=== PATIENT | female | born 1980 | race Caucasian/White ===

== ENCOUNTER 2016-07-05 14:39 | Outpatient (CLI) | payer MEDICAID | END 2016-07-05 14:40 | disposition home or self-care (01) | DX: Z79.899 Other long term (current) drug therapy (principal); E11.9 Type 2 diabetes mellitus without complications ==

== ENCOUNTER 2016-07-26 10:19 | Outpatient (CLI) | payer MEDICAID | END 2016-07-26 10:20 | disposition home or self-care (01) | DX: G47.30 Sleep apnea, unspecified (principal); R09.89 Other specified symptoms and signs involving the circulatory and respiratory systems; G47.8 Other sleep disorders; G47.10 Hypersomnia, unspecified; R06.83 Snoring; G47.21 Circadian rhythm sleep disorder, delayed sleep phase type ==

== ENCOUNTER 2016-08-21 21:09 | Outpatient (CLI) | payer MEDICAID | END 2016-08-21 21:10 | disposition home or self-care (01) | DX: G47.33 Obstructive sleep apnea (adult) (pediatric) (principal); Z68.43 Body mass index [BMI] 50.0-59.9, adult ==

== ENCOUNTER 2016-08-31 13:02 | Outpatient (CLI) | payer MEDICAID | END 2016-08-31 13:03 | disposition home or self-care (01) | DX: G47.33 Obstructive sleep apnea (adult) (pediatric) (principal) ==

== ENCOUNTER 2016-10-08 10:07 | Outpatient (CLI) | payer MEDICAID | END 2016-10-08 10:08 | disposition home or self-care (01) | DX: Z79.1 Long term (current) use of non-steroidal anti-inflammatories (NSAID) (principal); E11.9 Type 2 diabetes mellitus without complications ==

== ENCOUNTER 2016-11-23 10:46 | Outpatient (CLI) | payer MEDICAID | END 2016-11-23 10:47 | disposition home or self-care (01) | LOC: SC 10:46 | PROVIDERS: ATTEND Nurse Practitioner Family | DX: G47.33 Obstructive sleep apnea (adult) (pediatric) (principal) | CPT/HCPCS: 99212; 99214 ==

== ENCOUNTER → 2017-01-25 | Outpatient (CLI) | payer MEDICAID | LOC: LAB.R 16:00 | PROVIDERS: ATTEND Physician Assistant | DX: Z11.3 Encounter for screening for infections with a predominantly sexual mode of transmission (principal) | CPT/HCPCS: 87491; 87591 ==

== ENCOUNTER 2017-01-31 15:15 | Outpatient (CLI) | payer MEDICAID ==
[2017-01-31 20:11] LABS: HEMOGLOBIN A1C 0.68 g/dL
== END 2017-01-31 15:16 | disposition home or self-care (01) ==
LOC: LAB.N 15:15
PROVIDERS: ATTEND Nurse Practitioner Gerontology
DX: E11.9 Type 2 diabetes mellitus without complications (principal)
CPT/HCPCS: 36415; 83036

== ENCOUNTER 2017-02-03 08:33 | Outpatient (CLI) | payer MEDICAID | END 2017-02-03 08:34 | disposition home or self-care (01) | LOC: LAB.N 08:33 | PROVIDERS: ATTEND Nurse Practitioner Gerontology | DX: R53.83 Other fatigue (principal) | CPT/HCPCS: 36415; 84443 ==

== ENCOUNTER 2017-02-22 10:04 | Outpatient (CLI) | payer MEDICAID | END 2017-02-22 10:05 | disposition home or self-care (01) | LOC: SC 10:04 | PROVIDERS: ATTEND Nurse Practitioner Family | DX: G47.33 Obstructive sleep apnea (adult) (pediatric) (principal) | CPT/HCPCS: 99212; 99214 ==

== ENCOUNTER 2017-06-13 10:50 | Outpatient (CLI) | payer MEDICAID ==
[2017-06-13 13:07] LABS: HEMOGLOBIN A1C 0.86 g/dL
== END 2017-06-13 10:51 | disposition home or self-care (01) ==
LOC: LAB.N 10:50
PROVIDERS: ATTEND Nurse Practitioner Gerontology
DX: E11.9 Type 2 diabetes mellitus without complications (principal)
CPT/HCPCS: 36415; 83036

== ENCOUNTER 2017-12-07 09:40 | Outpatient (CLI) | payer MEDICAID ==
[2017-12-07 13:16] LABS: BASOPHILS % (AUTO) 0.3 %; EOSINOPHILS # (AUTO) 0.2 10^3/uL (0.0-0.7); EOSINOPHILS % (AUTO) 1.8 %; LYMPHOCYTES # (AUTO) 4.2 10^3/uL (1.5-3.5); LYMPHOCYTES % (AUTO) 34.9 %; MEAN CORPUSCULAR HEMOGLOBIN 30.9 pg (27.0-31.0); MEAN CORPUSCULAR HGB CONC 33.9 g/dL (32.0-36.0); MEAN CORPUSCULAR VOLUME 91.1 fL (81.0-99.0); MEAN PLATELET VOLUME 8.3 fL (7.9-10.8); MONOCYTES # (AUTO) 0.5 10^3/uL (0.0-1.0); MONOCYTES % (AUTO) 4.4 %; NEUTROPHILS # (AUTO) 7.1 10^3/uL (1.5-6.6); NEUTROPHILS % (AUTO) 58.6 %; PLT - PLATELET COUNT 276 10^3/uL (130-450); RED BLOOD COUNT 5.16 10^6/uL (4.20-5.40); RED CELL DISTRIBUTION WIDTH 12.9 % (12.0-15.0); WHITE BLOOD COUNT 12.1 x10^3/uL (4.8-10.8)
[2017-12-07 13:37] LABS: ALBUMIN 3.4 g/dL (3.2-5.5); ALBUMIN/GLOBULIN RATIO 0.9 (1.0-2.2); ALKALINE PHOSPHATASE 66 IU/L (42-121); ALT ALANINE AMINOTRANSFERASE 35 IU/L (10-60); AST ASPARTATE AMINOTRANSFERASE 24 IU/L (10-42); BILIRUBIN,TOTAL 0.6 mg/dL (0.2-1.0); BUN - BLOOD UREA NITROGEN 10 mg/dL (6-20); CALCIUM 8.8 mg/dL (8.5-10.3); CARBON DIOXIDE - CO2 25 mmol/L (21-32); CHLORIDE 109 mmol/L (101-111); CHOLESTEROL 138 mg/dL; CREATININE 0.5 mg/dL (0.4-1.0); GFR - MDRD 139 (>89); GLUCOSE 106 mg/dL (70-100); HDL CHOLESTEROL 23 mg/dL; LDL CHOLESTEROL,CALCULATED 73 mg/dL; LDL/HDL RATIO 3.2 (<4.4); SODIUM 137 mmol/L (135-145); TOTAL PROTEIN 7.3 g/dL (6.7-8.2); VLDL CHOLESTEROL 42 mg/dL
[2017-12-07 13:58] LABS: HB2 TOTAL 18.4 g/dL; HEMOGLOBIN A1C 1.32 g/dL; HEMOGLOBIN A1C % 8.7 % (4.6-6.2)
== END 2017-12-07 09:41 ==
LOC: LAB.N 09:40
PROVIDERS: ATTEND Nurse Practitioner Gerontology
DX: E11.9 Type 2 diabetes mellitus without complications (principal); Z79.4 Long term (current) use of insulin; E78.5 Hyperlipidemia, unspecified
CPT/HCPCS: 36415; 80053; 80061; 82043; 83036; 83721; 84443; 85025

== ENCOUNTER 2018-01-07 13:01 | Emergency (ER) | payer MEDICAID ==
[2018-01-07 13:10] VITALS: BP 116/78
--- NOTE | 2018-01-07 13:20 | ED Physician Documentation ---
PD HPI FEMALE - Stated complaint Stated Complaint: FEMALE - Chief complaint Chief Complaint: UTI - History obtained from History obtained from: Patient - History of Present Illness Timing - onset: How many days ago (2) Timing - duration: Days (2) Timing - details: Gradual onset, Still present Associated symptoms: Dysuria, Urinary frequency. No: Fever, Vaginal pain, Vaginal bleeding, Vaginal discharge Contributing factors: No: , Exposed to STD Similar symptoms before: Diagnosis (uti) Recently seen: Not recently seen Review of Systems Constitutional: denies: Fever, Chills, Myalgias Nose: denies: Rhinorrhea / runny nose, Congestion Throat: denies: Sore throat Respiratory: denies: Cough GI: reports: Nausea. denies: Abdominal Pain, Vomiting, Constipation, Diarrhea : reports: Dysuria, Frequency. 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 - Present Medications Home Medications: Ambulatory Orders Medication Instructions Recorded Confirmed Insulin Glargine,Hum.rec.anlog 100 unit SQ QPM 04/23/14 03/03/16 [Lantus] Insulin Lispro [Humalog] 50 unit SQ AC 04/23/14 03/03/16 Blood Sugar Diagnostic [Advanced 1 each QID #120 strip 03/22/15 03/03/16 Glucose Test Strips] Blood-Glucose Meter [Blood Glucose 1 each QID #1 each 03/22/15 03/03/16 Meter] Cephalexin [Keflex] 500 mg PO QID #20 capsule 03/03/16 Fluconazole [Diflucan] 150 mg PO ONCE #2 tablet 03/03/16 Hydrocodone/Acetaminophen [[place] 1 each PO Q6H PRN #20 tablet 03/03/16 5-325 Tablet] Naproxen 375 mg PO BID #15 tablet 03/03/16 Phenazopyridine [Pyridium] 200 mg PO TID PRN #15 tablet 01/07/18 Sulfamethox/Trimeth 800/160 1 each PO BID #14 tablet 01/07/18 [Bactrim Ds 800/160] - Allergies Allergies/Adverse Reactions: Allergies Allergy/AdvReac Type Severity Reaction Status Date / Time glipizide AdvReac Intermediate Diarrhea Verified 03/03/16 17:50 metformin AdvReac Intermediate Diarrhea Verified 03/03/16 17:50 acetaminophen [From Percocet] AdvReac Itching Verified 03/03/16 17:50 oxycodone HCl * AdvReac Itching Verified 03/03/16 17:50 [From Percocet] - Social History Does the pt smoke?: Yes Smoking Status: Current every day smoker Does the pt drink ETOH?: Yes Does the pt have substance abuse?: No - Immunizations Immunizations are current?: No Immunizations: TDAP >10years/unknown - POLST Patient has POLST: No PD ED PE NORMAL - Vitals Vital signs reviewed: Yes - General General: Alert and oriented X 3, No acute distress, Well developed/nourished - Abdomen Abdomen: Soft, Non tender - Female Female : Deferred - Rectal Rectal: Deferred - Back Back: No CVA TTP Results - Vitals Vitals: Oxygen O2 Source Room air - Labs Labs: Laboratory Tests 01/07/18 01/07/18 13:10 13:10 Urine Color DARK YELLOW Urine Clarity SL. CLOUDY Urine pH 6.0 Ur Specific [place] 1.020 1.020 Urine Protein NEGATIVE Urine Glucose (UA) NEGATIVE Urine Ketones NEGATIVE Urine Occult Blood TRACE-INTA Urine Nitrite POSITIVE H Urine Bilirubin NEGATIVE Urine Urobilinogen 0.2 (NORMAL) Ur Leukocyte Esterase SMALL H Urine RBC 0-5 Urine WBC >25 H Urine WBC Clumps PRESENT Ur Squamous Epith Cells MOD Squamous H Urine Bacteria Many H Ur Microscopic Review INDICATED Urine Culture Comments NOT INDICATED Urine HCG, Qual NEGATIVE PD MEDICAL DECISION MAKING - ED course Complexity details: considered differential, d/w patient - Sepsis Event Vital Signs: Oxygen O2 Source Room air Departure - Departure Disposition: 01 Home, Self Care Clinical Impression: Cystitis, Dysuria Condition: Stable Record reviewed to determine appropriate education?: Yes Instructions: ED UTI Cystitis Female Follow-Up: Cassy Doyle ARNP [Primary Care Provider] - Prescriptions: Phenazopyridine [Pyridium] 200 mg PO TID PRN #15 tablet PRN Reason: Pain Sulfamethox/Trimeth 800/160 [Bactrim Ds 800/160] 1 each PO BID #14 tablet Comments: Drink lots of fluids. Use Tylenol or ibuprofen if needed for pains. Phenazopyridine can help with the symptoms of urinary tract infection. Bactrim antibiotic twice daily for a week. Recheck if not improving over the next few days. Discharge Date/Time: 01/07/18 14:12
[2018-01-07 13:21] LABS: BILIRUBIN,URINE NEGATIVE (NEGATIVE); GLUCOSE, URINE (UA) NEGATIVE (NEGATIVE); KETONES,URINE (UA) NEGATIVE (NEGATIVE); LEUKOCYTE ESTERASE, URINE SMALL (NEGATIVE); NITRITE,URINE POSITIVE (NEGATIVE); OCCULT BLOOD,URINE TRACE-INTA (NEGATIVE); PROTEIN,URINE NEGATIVE (NEGATIVE); UROBILINOGEN,URINE 0.2 (NORMAL) E.U./dL (NORMAL)
[2018-01-07 13:23] LABS: CLARITY,URINE SL. CLOUDY (CLEAR)
[2018-01-07 13:24] LABS: HCG UR QUAL NEGATIVE
[2018-01-07 13:29] LABS: BACTERIA,URINE Many /HPF (None Seen); RBC,URINE 0-5 /HPF (0-5); SQUAMOUS EPITHELIAL CELL,UR MOD Squamous (<= Few); WBC CLUMPS,URINE PRESENT
[2018-01-07] MEDS ORDERED: PHENAZOPYRIDINE 100 MG TABLET PO STA (13:39)
[2018-01-07] MEDS ORDERED: SULFAMETH/TRIMETH DS 800/160 MG TABLET PO STA (13:39)
== END 2018-01-07 14:12 | disposition home or self-care (01) ==
LOC: ED 13:01
DX: N30.90 Cystitis, unspecified without hematuria (principal)
CPT/HCPCS: 81001; 81025; 99283; A9270; 81003; 87086

== ENCOUNTER 2018-02-20 08:46 | Outpatient (CLI) | payer MEDICAID | END 2018-02-20 08:47 | disposition home or self-care (01) | LOC: SC 08:46 | PROVIDERS: ATTEND Nurse Practitioner Family | DX: G47.33 Obstructive sleep apnea (adult) (pediatric) (principal) | CPT/HCPCS: 99212; 99214 ==

== ENCOUNTER 2018-07-28 17:47 | Emergency (ER) | payer MEDICAID ==
[2018-07-28 17:58] VITALS: BP 153/92
[2018-07-28 18:07] LABS: GLUCOSE, URINE (UA) NEGATIVE (NEGATIVE); KETONES,URINE (UA) 15 mg/dL (NEGATIVE); LEUKOCYTE ESTERASE, URINE SMALL (NEGATIVE); NITRITE,URINE NEGATIVE (NEGATIVE); OCCULT BLOOD,URINE NEGATIVE (NEGATIVE); PH,URINE 5.5 PH (5.0-7.5); PROTEIN,URINE NEGATIVE (NEGATIVE); UROBILINOGEN,URINE 1 (NORMAL) E.U./dL (NORMAL)
[2018-07-28 18:14] LABS: BILIRUBIN,URINE NEGATIVE (NEGATIVE); CLARITY,URINE CLOUDY (CLEAR); HCG UR QUAL NEGATIVE; ICTOTEST,URINE NEGATIVE
[2018-07-28 18:34] LABS: BACTERIA,URINE Many /HPF (None Seen); MUCUS,URINE Few Strands; RBC,URINE 0-5 /HPF (0-5); SQUAMOUS EPITHELIAL CELL,UR MANY Squamous (<= Few)
[2018-07-28] MEDS ORDERED: cephALEXin 250 MG CAPSULE PO STA (18:37)
[2018-07-28] MEDS ORDERED: PHENAZOPYRIDINE 100 MG TABLET PO STA (18:37)
--- NOTE | 2018-07-28 18:40 | ED Physician Documentation ---
History of Present Illness - Stated complaint Stated Complaint: FEMALE - Chief complaint Chief Complaint: UTI - History obtained from History obtained from: Patient - Additonal information Additional information: 38-year-old female presents the emergency department for evaluation of dysuria for the past 2 days with suprapubic cramping. The patient denies any vaginal discharge or concern for a sexually transmitted infection. No fevers or flank pain. Symptoms are described as mild. No other associated symptoms. The patient reports a history of recurrent urinary tract infections Review of Systems Constitutional: denies: Fever, Chills Eyes: denies: Discharge Ears: denies: Ear pain Nose: denies: Congestion Throat: denies: Sore throat Cardiac: denies: Chest pain / pressure Respiratory: denies: Cough GI: denies: Abdominal Pain : reports: Dysuria, Frequency Skin: denies: Rash Musculoskeletal: denies: Neck pain Neurologic: denies: Generalized weakness PD PAST MEDICAL HISTORY - Past Medical History Past Medical History: Yes Cardiovascular: None Respiratory: None Endocrine/Autoimmune: Type 2 diabetes GI: None, Cholelithiasis : None HEENT: None Psych: None, Bipolar disorder Musculoskeletal: None Derm: None - Past Surgical History Past Surgical History: Yes General: 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, 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 - Present Medications Home Medications: Ambulatory Orders Medication Instructions Recorded Confirmed Insulin Glargine,Hum.rec.anlog 100 unit SQ QPM 04/23/14 03/03/16 [Lantus] Insulin Lispro [Humalog] 50 unit SQ AC 04/23/14 03/03/16 Blood Sugar Diagnostic [Advanced 1 each QID #120 strip 03/22/15 03/03/16 Glucose Test Strips] Blood-Glucose Meter [Blood Glucose 1 each QID #1 each 03/22/15 03/03/16 Meter] Cephalexin [Keflex] 500 mg PO QID #20 capsule 03/03/16 Fluconazole [Diflucan] 150 mg PO ONCE #2 tablet 03/03/16 Hydrocodone/Acetaminophen [[place] 1 each PO Q6H PRN #20 tablet 03/03/16 5-325 Tablet] Naproxen 375 mg PO BID #15 tablet 03/03/16 Phenazopyridine [Pyridium] 200 mg PO TID PRN #15 tablet 01/07/18 Sulfamethox/Trimeth 800/160 1 each PO BID #14 tablet 01/07/18 [Bactrim Ds 800/160] Cephalexin [Keflex] 500 mg PO BID #14 capsule 07/28/18 Fluconazole [Diflucan] 150 mg PO DAILY #1 tablet 07/28/18 Phenazopyridine HCl [Pyridium] 200 mg PO TID PRN #6 tablet 07/28/18 - Allergies Allergies/Adverse Reactions: Allergies Allergy/AdvReac Type Severity Reaction Status Date / Time glipizide AdvReac Intermediate Diarrhea Verified 07/28/18 17:58 metformin AdvReac Intermediate Diarrhea Verified 07/28/18 17:58 acetaminophen [From Percocet] AdvReac Itching Verified 07/28/18 17:58 oxycodone HCl * AdvReac Itching Verified 07/28/18 17:58 [From Percocet] - Social History Does the pt smoke?: Yes Smoking Status: Current every day smoker Does the pt drink ETOH?: Yes Does the pt have substance abuse?: No - Immunizations Immunizations are current?: No Immunizations: TDAP >10years/unknown - POLST Patient has POLST: No PD ED PE NORMAL - General General: Alert and oriented X 3, No acute distress - HEENT HEENT: Atraumatic, PERRL, EOMI, Ears normal - Neck Neck: Supple, no meningeal sign - Cardiac Cardiac: RRR - Respiratory Respiratory: No respiratory distress, Clear bilaterally - Abdomen Abdomen: Soft, Non tender - Derm Derm: Normal color - Extremities Extremities: No deformity - Neuro Neuro: Alert and oriented X 3, Normal speech - Psych Psych: Normal mood Results - Vitals Vitals: Vital Signs - 24 hr 07/28/18 17:55 Temperature 36.9 C Heart Rate 112 H Respiratory 12 Rate Blood Pressure 153/92 H O2 Saturation 95 Oxygen O2 Source Room air - Labs Labs: Laboratory Tests 07/28/18 18:00 Urine Color YELLOW Urine Clarity CLOUDY Urine pH 5.5 Ur Specific [place] 1.025 Urine Protein NEGATIVE Urine Glucose (UA) NEGATIVE Urine Ketones 15 H Urine Occult Blood NEGATIVE Urine Nitrite NEGATIVE Urine Bilirubin NEGATIVE Urine Urobilinogen 1 (NORMAL) Ur Leukocyte Esterase SMALL H Urine RBC 0-5 Urine WBC 6-10 H Ur Squamous Epith Cells MANY Squamous H Urine Bacteria Many H Urine Mucus Few Strands Ur Microscopic Review INDICATED Urine Culture Comments NOT INDICATED Urine HCG, Qual NEGATIVE PD MEDICAL DECISION MAKING - ED course ED course: No signs of acute pyelonephritis, the patient appears appropriate for discharge and ongoing outpatient management. I discussed with her warning signs and recommended returning to the emergency department immediately for any worsening or any concerns Departure - Departure Disposition: Home, Self Care Clinical Impression: Acute cystitis Qualifiers: Hematuria presence: without hematuria Qualified Code(s): N30.00 - Acute cystitis without hematuria Condition: Good Instructions: ED UTI Cystitis Female Follow-Up: Cassy Doyle ARNP [Primary Care Provider] - Within 1 week Prescriptions: Cephalexin [Keflex] 500 mg PO BID #14 capsule Fluconazole [Diflucan] 150 mg PO DAILY #1 tablet Phenazopyridine HCl [Pyridium] 200 mg PO TID PRN #6 tablet PRN Reason: dysuria Print Language: Chadian Comments: Please return to the emergency department for worsening symptoms or any concerns
== END 2018-07-28 18:54 | disposition home or self-care (01) ==
LOC: ED 17:47
DX: N30.00 Acute cystitis without hematuria (principal); E11.9 Type 2 diabetes mellitus without complications; Z79.4 Long term (current) use of insulin; F17.200 Nicotine dependence, unspecified, uncomplicated
CPT/HCPCS: 81001; 81025; 99283; A9270; 81003; 87086

== ENCOUNTER 2018-10-01 03:17 | Emergency (ER) | payer MEDICAID ==
[2018-10-01 03:31] VITALS: BP 113/78
[2018-10-01 03:48] LABS: BILIRUBIN,URINE NEGATIVE (NEGATIVE); GLUCOSE, URINE (UA) NEGATIVE (NEGATIVE); KETONES,URINE (UA) NEGATIVE (NEGATIVE); LEUKOCYTE ESTERASE, URINE MODERATE (NEGATIVE); NITRITE,URINE POSITIVE (NEGATIVE); OCCULT BLOOD,URINE SMALL (NEGATIVE); PH,URINE 6.5 PH (5.0-7.5); PROTEIN,URINE 30 mg/dL (NEGATIVE); UROBILINOGEN,URINE 0.2 (NORMAL) E.U./dL (NORMAL)
[2018-10-01 03:49] LABS: CLARITY,URINE SL. CLOUDY (CLEAR)
[2018-10-01 03:53] LABS: RBC,URINE 0-5 /HPF (0-5)
[2018-10-01 03:54] LABS: BACTERIA,URINE Moderate /HPF (None Seen); SQUAMOUS EPITHELIAL CELL,UR NONE SEEN (<= Few)
--- NOTE | 2018-10-01 03:58 | ED Physician Documentation ---
PD HPI FEMALE - Stated complaint Stated Complaint: FEMALE - Chief complaint Chief Complaint: UTI - History obtained from History obtained from: Patient - History of Present Illness Timing - onset: Yesterday Timing - duration: Days (2) Timing - details: Gradual onset, Still present Associated symptoms: Abdominal pain, Dysuria, Urinary frequency Contributing factors: No: Similar symptoms before: Diagnosis (UTI) Recently seen: Not recently seen - Additional information Additional information: 38-year-old diabetic female has had an issue with urinary tract infections and she is developed some suprapubic cramping pain and urinary frequency. She has a history of diabetes and she does not feel that she has gotten her diabetes [id number]. She denies any flank pain. Review of Systems Constitutional: reports: Fever Eyes: denies: Decreased vision Ears: denies: Ear pain Nose: denies: Rhinorrhea / runny nose, Congestion Throat: denies: Sore throat Cardiac: denies: Chest pain / pressure Respiratory: denies: Dyspnea, Cough GI: reports: Abdominal Pain. 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 - Present Medications Home Medications: Ambulatory Orders Medication Instructions Recorded Confirmed Insulin Glargine,Hum.rec.anlog 100 unit SQ QPM 04/23/14 03/03/16 [Lantus] Insulin Lispro [Humalog] 50 unit SQ AC 04/23/14 03/03/16 Sulfamethoxazole/Trimethoprim 1 each PO BID #10 tablet 10/01/18 [Sulfamethoxazole-Tmp Ds Tablet] - Allergies Allergies/Adverse Reactions: Allergies Allergy/AdvReac Type Severity Reaction Status Date / Time glipizide AdvReac Intermediate Diarrhea Verified 10/01/18 03:31 metformin AdvReac Intermediate Diarrhea Verified 10/01/18 03:31 acetaminophen [From Percocet] AdvReac Itching Verified 10/01/18 03:31 oxycodone HCl * AdvReac Itching Verified 10/01/18 03:31 [From Percocet] - Social History Does the pt smoke?: Yes Smoking Status: Current every day smoker Does the pt drink ETOH?: Yes Does the pt have substance abuse?: No - Immunizations Immunizations are current?: Yes Immunizations: TDAP >10years/unknown - POLST Patient has POLST: No PD ED PE NORMAL - Vitals Vital signs reviewed: Yes (tachy ) - General General: Alert and oriented X 3, No acute distress, Well developed/nourished - HEENT HEENT: Atraumatic, PERRL, EOMI - Respiratory Respiratory: No respiratory distress - Back Back: No CVA TTP, No spinal TTP - Derm Derm: Normal color, Warm and dry, No rash - Extremities Extremities: No deformity, No edema - Neuro Neuro: Alert and oriented X 3, 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 CLOUDY Urine pH 6.5 Ur Specific [place] 1.015 Urine Protein 30 H Urine Glucose (UA) NEGATIVE Urine Ketones NEGATIVE Urine Occult Blood SMALL H Urine Nitrite POSITIVE H Urine Bilirubin NEGATIVE Urine Urobilinogen 0.2 (NORMAL) Ur Leukocyte Esterase MODERATE H Urine RBC 0-5 Urine WBC >25 H Ur Squamous Epith Cells NONE SEEN Urine Bacteria Moderate H Ur Microscopic Review INDICATED Urine Culture Comments INDICATED PD MEDICAL DECISION MAKING - ED course Complexity details: reviewed old records, reviewed results, re-evaluated patient, considered differential, d/w patient, d/w family ED course: 38-year-old female with a history of urinary tract infections has developed symptoms again has urinary tract infection on interrogation of the urine and she does not have any glucose in the urine this morning. She is administered Septra. Departure - Departure Disposition: 01 Home, Self Care Clinical Impression: Urinary tract infection Qualifiers: Urinary tract infection type: acute cystitis Hematuria presence: without hematuria Qualified Code(s): N30.00 - Acute cystitis without hematuria Instructions: ED UTI Cystitis Female Follow-Up: Cassy Doyle ARNP [Primary Care Provider] - Prescriptions: Sulfamethoxazole/Trimethoprim [Sulfamethoxazole-Tmp Ds Tablet] 1 each PO BID #10 tablet
[2018-10-01] MEDS ORDERED: SULFAM/TRIM 800/160 Prepack 2 PO ONE (04:02)
== END 2018-10-01 04:10 | disposition home or self-care (01) ==
LOC: ED 03:17
DX: R35.0 Frequency of micturition (principal); N30.00 Acute cystitis without hematuria; E78.00 Pure hypercholesterolemia, unspecified; I10 Essential (primary) hypertension; E11.9 Type 2 diabetes mellitus without complications; Z79.4 Long term (current) use of insulin
CPT/HCPCS: 81001; 81003; 87086; 87181; 99283

== ENCOUNTER 2018-10-09 18:04 | Emergency (ER) | payer MEDICAID ==
--- NOTE | 2018-10-09 18:38 | ED Physician Documentation ---
PD HPI FEMALE - Stated complaint Stated Complaint: FEM - Chief complaint Chief Complaint: UTI - History obtained from History obtained from: Patient - History of Present Illness Timing - onset: Other (38-year-old woman with recent UTI, grew pansensitive E. coli was on Bactrim. Got worse again mid antibiotic course with lower abdominal pain and frequency.) Review of Systems Constitutional: denies: Fever, Chills Cardiac: denies: Chest pain / pressure, Palpitations Respiratory: denies: Dyspnea, Cough GI: reports: Abdominal Pain. 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 - Present Medications Home Medications: Ambulatory Orders Medication Instructions Recorded Confirmed Insulin Glargine,Hum.rec.anlog 100 unit SQ QPM 04/23/14 03/03/16 [Lantus] Insulin Lispro [Humalog] 10 unit SUBQ ONCE 10/09/18 10/09/18 Nitrofurantoin Monohyd/M-Cryst 100 mg PO BID #10 capsule 10/09/18 [Macrobid 100 mg Capsule] - Allergies Allergies/Adverse Reactions: Allergies Allergy/AdvReac Type Severity Reaction Status Date / Time glipizide AdvReac Intermediate Diarrhea Verified 10/09/18 18:08 metformin AdvReac Intermediate Diarrhea Verified 10/09/18 18:08 acetaminophen [From Percocet] AdvReac Itching Verified 10/09/18 18:08 oxycodone HCl * AdvReac Itching Verified 10/09/18 18:08 [From Percocet] - Social History Does the pt smoke?: Yes Smoking Status: Current every day smoker Does the pt drink ETOH?: Yes Does the pt have substance abuse?: No - Immunizations Immunizations are current?: Yes Immunizations: TDAP >10years/unknown - POLST Patient has POLST: No PD ED PE NORMAL - Vitals Vital signs reviewed: Yes - General General: Alert and oriented X 3, No acute distress - Abdomen Abdomen: Soft, Other (Mild suprapubic tenderness) - Extremities Extremities: No edema, No calf tenderness / cord - Neuro Neuro: Alert and oriented X 3, Normal speech Results - Vitals Vitals: Vital Signs - 24 hr 10/09/18 18:06 Temperature 36.2 C L Heart Rate 102 H Respiratory 22 Rate Blood Pressure 150/115 H O2 Saturation 99 Oxygen O2 Source Room air - Labs Labs: Laboratory Tests 10/09/18 10/09/18 18:15 18:17 Urine Color YELLOW Urine Clarity CLEAR Urine pH 6.0 Ur Specific [place] 1.020 1.020 Urine Protein NEGATIVE Urine Glucose (UA) NEGATIVE Urine Ketones NEGATIVE Urine Occult Blood NEGATIVE Urine Nitrite NEGATIVE Urine Bilirubin NEGATIVE Urine Urobilinogen 0.2 (NORMAL) Ur Leukocyte Esterase NEGATIVE Ur Microscopic Review NOT INDICATED Urine Culture Comments NOT INDICATED Urine HCG, Qual NEGATIVE PD MEDICAL DECISION MAKING - ED course ED course: Persistent UTI symptoms with pretty normal exam and negative UA. No discharge or itching. Slight concern for STDs and these are sent. Departure - Departure Disposition: 01 Home, Self Care Clinical Impression: Cystitis Condition: Good Record reviewed to determine appropriate education?: Yes Instructions: ED UTI Cystitis Female Prescriptions: Nitrofurantoin Monohyd/M-Cryst [Macrobid 100 mg Capsule] 100 mg PO BID #10 capsule Comments: Follow-up with your doctor late week if not better, return for new or worsening symptoms. Your blood pressure was elevated today on check into the emergency department. This does not mean that you have hypertension, it is a common phenomenon to come to the emergency department and have elevated blood pressure. I recommend that you see your primary care physician within the week to have it rechecked when you are feeling better.
[2018-10-09 19:29] LABS: BILIRUBIN,URINE NEGATIVE (NEGATIVE); GLUCOSE, URINE (UA) NEGATIVE (NEGATIVE); KETONES,URINE (UA) NEGATIVE (NEGATIVE); LEUKOCYTE ESTERASE, URINE NEGATIVE (NEGATIVE); NITRITE,URINE NEGATIVE (NEGATIVE); OCCULT BLOOD,URINE NEGATIVE (NEGATIVE); PROTEIN,URINE NEGATIVE (NEGATIVE); UROBILINOGEN,URINE 0.2 (NORMAL) E.U./dL (NORMAL)
[2018-10-09 19:34] LABS: HCG UR QUAL NEGATIVE
[2018-10-09 19:36] LABS: CLARITY,URINE CLEAR (CLEAR)
[2018-10-09] MEDS ORDERED: NITROFURANTOIN MACRO 100 MG CAPSULE PO STA (19:45)
[2018-10-09 20:07] VITALS: BP 124/82
== END 2018-10-09 20:06 | disposition home or self-care (01) ==
LOC: ED 18:04
DX: N30.90 Cystitis, unspecified without hematuria (principal); I10 Essential (primary) hypertension; E78.00 Pure hypercholesterolemia, unspecified; E11.9 Type 2 diabetes mellitus without complications; Z79.4 Long term (current) use of insulin; F17.200 Nicotine dependence, unspecified, uncomplicated
CPT/HCPCS: 81003; 81025; 87491; 87591; 99283; A9270; 81001; 87086

== ENCOUNTER 2019-05-15 16:15 | Outpatient (CLI) | payer MEDICAID | END 2019-05-15 23:59 | disposition home or self-care (01) | LOC: LAB.R 16:15 | PROVIDERS: ATTEND Family Medicine | DX: N39.0 Urinary tract infection, site not specified (principal) | CPT/HCPCS: 87086; 87181 ==

== ENCOUNTER 2022-01-25 08:00 | Outpatient (CLI) | payer MEDICAID ==
[2022-01-25 22:38] LABS: BACTERIAL VAGINOSIS DNA NEGATIVE (NEGATIVE); CANDIDA GLABRATA DNA NEGATIVE (NEGATIVE); CANDIDA GROUP DNA POSITIVE (NEGATIVE); CANDIDA KRUSEI DNA NEGATIVE (NEGATIVE); TRICHOMONAS VAGINALIS DNA NEGATIVE (NEGATIVE)
== END 2022-01-25 23:59 | disposition home or self-care (01) ==
LOC: LAB.N 08:00
PROVIDERS: ATTEND Physician Assistant Medical
DX: R10.9 Unspecified abdominal pain (principal)
CPT/HCPCS: 81514; 87077; 87086; 87181

== ENCOUNTER 2022-07-19 13:46 | Outpatient (CLI) | payer MEDICAID ==
[2022-07-19 18:00] LABS: BASOPHILS # (AUTO) 0.1 10^3/uL (0.0-0.1); BASOPHILS % (AUTO) 0.5 %; EOSINOPHILS # (AUTO) 0.2 10^3/uL (0.0-0.7); EOSINOPHILS % (AUTO) 1.6 %; HCT - HEMATOCRIT 45.6 % (37.0-47.0); HGB - HEMOGLOBIN 15.7 g/dL (12.0-16.0); LYMPHOCYTES # (AUTO) 2.8 10^3/uL (1.5-3.5); LYMPHOCYTES % (AUTO) 25.5 %; MEAN CORPUSCULAR HEMOGLOBIN 31.2 pg (27.0-31.0); MEAN CORPUSCULAR HGB CONC 34.4 g/dL (32.0-36.0); MEAN CORPUSCULAR VOLUME 90.5 fL (81.0-99.0); MEAN PLATELET VOLUME 10.1 fL (7.9-10.8); MONOCYTES # (AUTO) 0.6 10^3/uL (0.0-1.0); NEUTROPHILS # (AUTO) 7.4 10^3/uL (1.5-6.6); NEUTROPHILS % (AUTO) 66.7 %; PLT - PLATELET COUNT 236 10^3/uL (130-450); RED BLOOD COUNT 5.04 10^6/uL (4.20-5.40); RED CELL DISTRIBUTION WIDTH 12.5 % (12.0-15.0); WHITE BLOOD COUNT 11.2 x10^3/uL (4.8-10.8)
[2022-07-19 18:40] LABS: ALBUMIN 3.4 g/dL (3.2-5.5); ALBUMIN/GLOBULIN RATIO 0.9 (1.0-2.2); ALKALINE PHOSPHATASE 60 IU/L (42-121); ALT ALANINE AMINOTRANSFERASE 29 IU/L (10-60); AST ASPARTATE AMINOTRANSFERASE 20 IU/L (10-42); BILIRUBIN,TOTAL 0.6 mg/dL (0.2-1.0); BUN - BLOOD UREA NITROGEN 11 mg/dL (6-20); CALCIUM 9.3 mg/dL (8.5-10.3); CARBON DIOXIDE - CO2 27 mmol/L (21-32); CHLORIDE 109 mmol/L (101-111); CHOL/HDL RATIO 5.5 (<4.4); CHOLESTEROL 154 mg/dL; CREATININE 0.6 mg/dL (0.4-1.0); GFR - MDRD 110 (>89); GLUCOSE 200 mg/dL (70-100); HDL CHOLESTEROL 28 mg/dL; LDL CHOLESTEROL,CALCULATED 88 mg/dL; LDL/HDL RATIO 3.1 (<4.4); POTASSIUM 4.4 mmol/L (3.5-5.0); SODIUM 141 mmol/L (135-145); TRIGLYCERIDES 188 mg/dL; VLDL CHOLESTEROL 38 mg/dL
[2022-07-19 18:45] LABS: THYROID STIMULATING HORMONE 0.93 uIU/mL (0.34-5.60)
[2022-07-19 22:02] LABS: ESTIMATED AVERAGE GLUCOSE 180 mg/dL (70-100); HEMOGLOBIN A1c% 7.9 % (4.27-6.07)
== END 2022-07-19 13:47 | disposition home or self-care (01) ==
LOC: LAB.N 13:46
PROVIDERS: ATTEND Nurse Practitioner Family
DX: E11.9 Type 2 diabetes mellitus without complications (principal); E66.01 Morbid (severe) obesity due to excess calories
CPT/HCPCS: 36415; 80053; 80061; 83036; 83721; 84443; 85025

== ENCOUNTER 2022-10-18 12:47 | Outpatient (CLI) | payer MEDICARE, MEDICAID ==
[2022-10-18 20:26] LABS: ESTIMATED AVERAGE GLUCOSE 131 mg/dL (70-100); HEMOGLOBIN A1c% 6.2 % (4.27-6.07)
== END 2022-10-18 12:48 | disposition home or self-care (01) ==
LOC: LAB.N 12:47
PROVIDERS: ATTEND Nurse Practitioner Family
DX: E11.65 Type 2 diabetes mellitus with hyperglycemia (principal); Z79.4 Long term (current) use of insulin
CPT/HCPCS: 36415; 83036

== ENCOUNTER 2022-11-23 22:05 | Emergency (ER) | payer MEDICARE, MEDICAID ==
[2022-11-23 22:43] LABS: BASOPHILS % (AUTO) 0.3 %; EOSINOPHILS # (AUTO) 0.1 10^3/uL (0.0-0.7); EOSINOPHILS % (AUTO) 0.9 %; HCT - HEMATOCRIT 45.6 % (37.0-47.0); HGB - HEMOGLOBIN 15.9 g/dL (12.0-16.0); LYMPHOCYTES # (AUTO) 2.9 10^3/uL (1.5-3.5); LYMPHOCYTES % (AUTO) 21.4 %; MEAN CORPUSCULAR HEMOGLOBIN 30.5 pg (27.0-31.0); MEAN CORPUSCULAR HGB CONC 34.9 g/dL (32.0-36.0); MEAN CORPUSCULAR VOLUME 87.4 fL (81.0-99.0); MEAN PLATELET VOLUME 9.5 fL (7.9-10.8); MONOCYTES # (AUTO) 0.8 10^3/uL (0.0-1.0); MONOCYTES % (AUTO) 5.8 %; NEUTROPHILS # (AUTO) 9.8 10^3/uL (1.5-6.6); NEUTROPHILS % (AUTO) 71.2 %; PLT - PLATELET COUNT 275 10^3/uL (130-450); RED BLOOD COUNT 5.22 10^6/uL (4.20-5.40); RED CELL DISTRIBUTION WIDTH 12.1 % (12.0-15.0); WHITE BLOOD COUNT 13.7 x10^3/uL (4.8-10.8)
[2022-11-23 22:49] LABS: BILIRUBIN,URINE NEGATIVE (NEGATIVE); GLUCOSE, URINE (UA) NEGATIVE (NEGATIVE); KETONES,URINE (UA) NEGATIVE (NEGATIVE); LEUKOCYTE ESTERASE, URINE NEGATIVE (NEGATIVE); NITRITE,URINE NEGATIVE (NEGATIVE); OCCULT BLOOD,URINE NEGATIVE (NEGATIVE); PROTEIN,URINE NEGATIVE (NEGATIVE); UROBILINOGEN,URINE 0.2 (NORMAL) E.U./dL (NORMAL)
[2022-11-23 22:52] LABS: CLARITY,URINE CLEAR (CLEAR); HCG UR QUAL NEGATIVE
[2022-11-23 23:03] LABS: ALBUMIN 3.6 g/dL (3.2-5.5); ALBUMIN/GLOBULIN RATIO 0.9 (1.0-2.2); BILIRUBIN,TOTAL 0.6 mg/dL (0.2-1.0); CALCIUM 9.2 mg/dL (8.5-10.3); CREATININE 0.5 mg/dL (0.4-1.0); POTASSIUM 3.8 mmol/L (3.5-5.0); TOTAL PROTEIN 7.6 g/dL (6.7-8.2)
[2022-11-24] MEDS ORDERED: PANTOPRAZOLE 40 MG TABLET PO STA (01:04)
[2022-11-24] MEDS ORDERED: ONDANSETRON ODT 4 MG TABLET TL STA (01:04)
[2022-11-24 01:05] VITALS: BP 111/72
[2022-11-24] MEDS ORDERED: LIDOCAINE VISCOUS 2% 15 ML ORAL SYRINGE MM STA (01:05)
[2022-11-24] MEDS ORDERED: MAG HYDROX/AL HYDROX/SIMETH 30 ML UDC PO STA (01:05)
--- NOTE | 2022-11-25 03:09 | ED Physician Documentation ---
PD HPI ABD PAIN - Stated complaint Stated Complaint: ABD PAIN - Chief complaint Chief Complaint: Abd Pain - History obtained from History obtained from: Patient - History of Present Illness Timing - details: Gradual onset - Additional information Additional information: HPI from patient. Patient c/o one week of abdominal pain in epigastrium with radiation to BUQ, associated with nausea, vomiting. Pain has been episodic without inciting, exacerbating, nor ameliorating factors. Patient has had no change in symptoms with PO intake, no improvement with pepto bismol and TUMS. Denies h/o similar pain. Denies fever. Has had appendectomy, cholecystectomy. Review of Systems Constitutional: denies: Fever, Chills, Sweats Cardiac: reports: Reviewed and negative Respiratory: reports: Reviewed and negative GI: reports: Abdominal Pain, Nausea, Vomiting. 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 - Present Medications Home Medications: Ambulatory Orders Medication Instructions Recorded Confirmed Insulin Glargine,Hum.rec.anlog 100 unit SQ QPM 04/23/14 03/03/16 [Lantus] Insulin Lispro [Humalog] 10 unit SUBQ ONCE 10/09/18 10/09/18 Nitrofurantoin Monohyd/M-Cryst 100 mg PO BID #10 capsule 10/09/18 [Macrobid 100 mg Capsule] Lidocaine Viscous 2% [Xylocaine 5 - 10 ml MM Q4H PRN #100 ml 11/24/22 Viscous 2%] Ondansetron Odt [Zofran Odt] 4 mg TL Q6H PRN #14 tablet 11/24/22 Sucralfate [Carafate] 1 gm PO ACHS #60 tablet 11/24/22 - Allergies Allergies/Adverse Reactions: Allergies Allergy/AdvReac Type Severity Reaction Status Date / Time glipizide AdvReac Intermediate Diarrhea Verified 11/23/22 22:18 metformin AdvReac Intermediate Diarrhea Verified 11/23/22 22:18 acetaminophen [From Percocet] AdvReac Itching Verified 11/23/22 22:18 oxycodone HCl * AdvReac Itching Verified 11/23/22 22:18 [From Percocet] - Social History Does the pt smoke?: Yes Smoking Status: Current every day smoker Does the pt drink ETOH?: Yes Does the pt have substance abuse?: No - Immunizations Immunizations are current?: Yes Immunizations: TDAP >10years/unknown - POLST Patient has POLST: No PD ED PE NORMAL - Vitals Vital signs reviewed: Yes - General General: Alert and oriented X 3, No acute distress, Well developed/nourished - HEENT HEENT: Moist mucous membranes - Neck Neck: Supple, no meningeal sign - Cardiac Cardiac: RRR, No murmur - Respiratory Respiratory: No respiratory distress, Clear bilaterally - Abdomen Abdomen: Normal bowel sounds, Soft, Non tender, Non distended - Back Back: No CVA TTP Results - Vitals Vitals: Oxygen O2 Source Room air - Labs Labs: Laboratory Tests 11/23/22 11/23/22 11/23/22 22:36 22:36 22:38 WBC 13.7 H RBC 5.22 Hgb 15.9 Hct 45.6 MCV 87.4 MCH 30.5 MCHC 34.9 RDW 12.1 Plt Count 275 MPV 9.5 Neut # (Auto) 9.8 H Lymph # (Auto) 2.9 [place] # (Auto) 0.8 Eos # (Auto) 0.1 Baso # (Auto) 0.0 Absolute Nucleated RBC 0.00 Nucleated RBC % 0.0 Sodium 141 Potassium 3.8 Chloride 106 Carbon Dioxide 27 Anion Gap 8.0 BUN 13 Creatinine 0.5 Estimated GFR (MDRD) 135 Glucose 192 H Calcium 9.2 Total Bilirubin 0.6 AST 13 ALT 15 Alkaline Phosphatase 68 Total Protein 7.6 Albumin 3.6 Globulin 4.0 Albumin/Globulin Ratio 0.9 L Lipase 31 Urine Color YELLOW Urine Clarity CLEAR Urine pH 7.0 Ur Specific [place] 1.015 Urine Protein NEGATIVE Urine Glucose (UA) NEGATIVE Urine Ketones NEGATIVE Urine Occult Blood NEGATIVE Urine Nitrite NEGATIVE Urine Bilirubin NEGATIVE Urine Urobilinogen 0.2 (NORMAL) Ur Leukocyte Esterase NEGATIVE Ur Microscopic Review NOT INDICATED Urine Culture Comments NOT INDICATED Urine HCG, Qual NEGATIVE PD Medical Decision Making - ED course Complexity details: reviewed results, re-evaluated patient, considered d ifferential, d/w patient ED course: Tests ordered and results reviewed by me: CBC, ER abdominal panel, UA, UHCG. These tests have no concerning nor diagnostic results. Mild leukocytosis noted (wbc 13.7), hyperglycemia (192). Normal LFTs, normal lipase, normal UA, and negative urine HCG. She is nontender on abdominal exam and in NAD. Radiologic studies are not indicated at this time, unlikely to result in, or suggest, a diagnosis, and unlikely to indicate or suggest specific management. Etiology of symptoms is not apparent at this time. Doubt renal colic (no hematuria, symptoms are anterior and midline with bilateral,not unilateral, flank pain), doubt pyelonephritis (normal UA). Biliary colic and appendicitis are excluded with her surgical history. PUD remains on differential diagnosis and she is given PPI, maalox/viscous lidocaine, and zofran in ED, and advised to take 2 weeks of OTC PPI. Provided rx for carafate, zofran, and viscous lidocaine. Return precautions discussed, advised to follow up with PMD, next available appointment Departure - Departure Disposition: Home, Self Care Clinical Impression: Abdominal pain Condition: Good Instructions: ED Abdominal Pain Female Non-Specific Abdominal Pain Prescriptions: Sucralfate [Carafate] 1 gm PO ACHS #60 tablet Lidocaine Viscous 2% [Xylocaine Viscous 2%] 5 - 10 ml MM Q4H PRN #100 ml PRN Reason: Abdominal Pain Ondansetron Odt [Zofran Odt] 4 mg TL Q6H PRN #14 tablet PRN Reason: Nausea / Vomiting Comments: There were no concerning or diagnostic findings on tonight's test, including the blood test, urinalysis. As we discussed, your white blood cell count was very mildly elevated above the normal range. Also noted was a high blood sugar of 192. Otherwise, the rest of your blood tests were normal including liver function tests and the pancreatic enzyme blood test. Your electrolytes and kidney function tests were also normal as was the urinalysis. No imaging studies were performed tonight (such as a CT scan) due to a few different factors: This was considering the mostly unremarkable blood tests, the lack of tenderness on the abdominal exam, and your prior surgical history which excludes appendicitis, gallstones as possible causes of your symptoms. A previous CT scan did show diverticulosis, but, as we discussed, if this were to become diverticulitis, there would be significant tenderness on the abdominal exam. The cause of your symptoms is not apparent at this time. One of the possible causes, based on your description of symptoms and the location (upper abdomen), is inflammation of the stomach lining, such as gastritis or stomach ulcer. You are given a dose of ondansetron (antinausea medication) in the ER to help with the nausea, as well as a acid blocking medication (Protonix) which could help with the symptoms if the underlying cause is gastritis or ulcer. You are also given Maalox mixed with a numbing agent (lidocaine). Follow-up with your primary care provider, next available appointment. If your symptoms persist or recur, further tests might be helpful, such as upper endoscopy. This is at the discretion of your primary care provider. I am providing you with prescriptions for the lidocaine and ondansetron. EstimateI recommend that you take an acid blocking medication once per day for 2 weeks such as omeprazole or esomeprazole (Prilosec or Nexium). I am also providing you with a prescription for Carafate; this can be a helpful medication if acid-blockers do not control symptoms related to gastritis and/or ulcers. I recommend you try the Carafate if the other medications are not helping with your symptoms. Discharge Date/Time: 11/24/22 01:27
== END 2022-11-24 01:27 | disposition home or self-care (01) ==
LOC: ED 22:05
DX: R11.2 Nausea with vomiting, unspecified (principal); R10.12 Left upper quadrant pain; R10.11 Right upper quadrant pain; F17.200 Nicotine dependence, unspecified, uncomplicated
CPT/HCPCS: 36415; 80053; 81003; 81025; 83690; 85025; 93005; 99284; A9270; Q0162; 81001; 87086

== ENCOUNTER 2023-04-27 19:36 | Outpatient (CLI) | payer MEDICARE, MEDICAID | END 2023-04-27 23:59 | disposition critical access hospital (66) | LOC: EMS 19:36 | DX: Z04.6 Encounter for general psychiatric examination, requested by authority (principal); R45.851 Suicidal ideations | CPT/HCPCS: A0425; A0429 ==

== ENCOUNTER 2023-04-27 19:57 | Emergency (ER) | payer MEDICARE, MEDICAID ==
[2023-04-27 20:18] LABS: MUDS CUTOFF CONCENTRATIONS CUTOFF CONC BELOW:
[2023-04-27 20:23] VITALS: O2SAT 100
[2023-04-27 20:34] LABS: BASOPHILS % (AUTO) 0.2 %; EOSINOPHILS # (AUTO) 0.1 10^3/uL (0.0-0.7); EOSINOPHILS % (AUTO) 0.4 %; HCT - HEMATOCRIT 41.1 % (37.0-47.0); HGB - HEMOGLOBIN 14.4 g/dL (12.0-16.0); LYMPHOCYTES # (AUTO) 1.7 10^3/uL (1.5-3.5); LYMPHOCYTES % (AUTO) 13.7 %; MEAN CORPUSCULAR HEMOGLOBIN 29.9 pg (27.0-31.0); MEAN CORPUSCULAR VOLUME 85.3 fL (81.0-99.0); MEAN PLATELET VOLUME 9.2 fL (7.9-10.8); MONOCYTES # (AUTO) 0.5 10^3/uL (0.0-1.0); MONOCYTES % (AUTO) 4.2 %; NEUTROPHILS % (AUTO) 81.1 %; PLT - PLATELET COUNT 282 10^3/uL (130-450); RED BLOOD COUNT 4.82 10^6/uL (4.20-5.40); RED CELL DISTRIBUTION WIDTH 11.8 % (12.0-15.0); WHITE BLOOD COUNT 12.3 x10^3/uL (4.8-10.8)
[2023-04-27 20:37] LABS: BILIRUBIN,URINE NEGATIVE (NEGATIVE); GLUCOSE, URINE (UA) >=1000 mg/dL (NEGATIVE); KETONES,URINE (UA) NEGATIVE (NEGATIVE); LEUKOCYTE ESTERASE, URINE NEGATIVE (NEGATIVE); NITRITE,URINE NEGATIVE (NEGATIVE); OCCULT BLOOD,URINE NEGATIVE (NEGATIVE); PH,URINE 5.5 PH (5.0-7.5); PROTEIN,URINE NEGATIVE (NEGATIVE); UROBILINOGEN,URINE 0.2 (NORMAL) E.U./dL (NORMAL)
[2023-04-27 20:40] LABS: CLARITY,URINE CLEAR (CLEAR); HCG UR QUAL NEGATIVE
[2023-04-27 20:48] LABS: AMPHETAMINE SCREEN,URINE NEGATIVE (NEGATIVE); BARBITURATE SCREEN,UR NEGATIVE (NEGATIVE); BENZODIAZEPINES SCREEN, URINE NEGATIVE (NEGATIVE); COCAINE SCREEN URINE NEGATIVE (NEGATIVE); METHADONE SCREEN, URINE NEGATIVE (NEGATIVE); METHAMPHETAMINES SCREEN, URINE NEGATIVE (NEGATIVE); OPIATE SCREEN, URINE NEGATIVE (NEGATIVE); OXYCODONE SCREEN, URINE NEGATIVE (NEGATIVE); PROPOXYPHENE SCREEN, URINE NEGATIVE (NEGATIVE); THC CANNABINOID SCREEN, URINE NEGATIVE (NEGATIVE); TRICYCLIC ANTIDEPRESSANT,URINE NEGATIVE (NEGATIVE)
[2023-04-27 20:59] LABS: ALBUMIN 3.7 g/dL (3.2-5.5); ALBUMIN/GLOBULIN RATIO 1.1 (1.0-2.2); ALKALINE PHOSPHATASE 74 IU/L (42-121); ALT ALANINE AMINOTRANSFERASE 15 IU/L (10-60); AST ASPARTATE AMINOTRANSFERASE 12 IU/L (10-42); BILIRUBIN,TOTAL 0.3 mg/dL (0.2-1.0); BUN - BLOOD UREA NITROGEN 13 mg/dL (6-20); CARBON DIOXIDE - CO2 24 mmol/L (21-32); CHLORIDE 108 mmol/L (101-111); CREATININE 0.5 mg/dL (0.6-1.3); ETOH - ETHANOL < 10.0 mg/dL; GFR - MDRD 135 (>89); GLUCOSE 240 mg/dL (74-104); LIPASE 13 U/L (11-82); SODIUM 138 mmol/L (135-145); TOTAL PROTEIN 7.1 g/dL (6.4-8.9)
[2023-04-27 21:01] LABS: THYROID STIMULATING HORMONE 0.01 uIU/mL (0.34-5.60)
[2023-04-27 21:11] LABS: ACETAMINOPHEN < 0.1 ug/mL; SALICYLATE < 1.5 mg/dL
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
[2023-04-27 22:28] VITALS: BP 138/72
== END 2023-04-27 22:18 | disposition home or self-care (01) ==
LOC: EDUNIT# → ED 19:57
DX: F31.9 Bipolar disorder, unspecified (principal); S60.812A Abrasion of left wrist, initial encounter; X83.8XXA Intentional self-harm by other specified means, initial encounter; I10 Essential (primary) hypertension; E78.00 Pure hypercholesterolemia, unspecified; F17.200 Nicotine dependence, unspecified, uncomplicated; Z79.4 Long term (current) use of insulin; Z79.899 Other long term (current) drug therapy
CPT/HCPCS: 36415; 80053; 80306; 80307; 81003; 81025; 83690; 84443; 85025; 99283; G0480; 80320; 80329; 81001; 87086

== ENCOUNTER 2023-07-20 12:08 | Outpatient (CLI) | payer MEDICARE, MEDICAID ==
[2023-07-20 17:48] LABS: BASOPHILS % (AUTO) 0.4 %; EOSINOPHILS # (AUTO) 0.1 10^3/uL (0.0-0.7); EOSINOPHILS % (AUTO) 1.7 %; HGB - HEMOGLOBIN 13.5 g/dL (12.0-16.0); LYMPHOCYTES # (AUTO) 2.7 10^3/uL (1.5-3.5); LYMPHOCYTES % (AUTO) 31.5 %; MEAN CORPUSCULAR HEMOGLOBIN 29.1 pg (27.0-31.0); MEAN CORPUSCULAR HGB CONC 34.6 g/dL (32.0-36.0); MEAN CORPUSCULAR VOLUME 84.1 fL (81.0-99.0); MEAN PLATELET VOLUME 9.4 fL (7.9-10.8); MONOCYTES # (AUTO) 0.5 10^3/uL (0.0-1.0); MONOCYTES % (AUTO) 6.3 %; NEUTROPHILS # (AUTO) 5.1 10^3/uL (1.5-6.6); NEUTROPHILS % (AUTO) 59.9 %; PLT - PLATELET COUNT 275 10^3/uL (130-450); RED BLOOD COUNT 4.64 10^6/uL (4.20-5.40); RED CELL DISTRIBUTION WIDTH 12.7 % (12.0-15.0); WHITE BLOOD COUNT 8.5 x10^3/uL (4.8-10.8)
[2023-07-20 18:05] LABS: ALBUMIN 3.5 g/dL (3.2-5.5); ALKALINE PHOSPHATASE 74 IU/L (42-121); ALT ALANINE AMINOTRANSFERASE 15 IU/L (10-60); AST ASPARTATE AMINOTRANSFERASE 15 IU/L (10-42); BILIRUBIN,TOTAL 0.4 mg/dL (0.2-1.0); BUN - BLOOD UREA NITROGEN 13 mg/dL (6-20); CALCIUM 9.1 mg/dL (8.5-10.3); CARBON DIOXIDE - CO2 24 mmol/L (21-32); CHLORIDE 109 mmol/L (101-111); CHOLESTEROL 105 mg/dL; CREATININE 0.4 mg/dL (0.6-1.3); GFR - MDRD 174 (>89); GLUCOSE 189 mg/dL (74-104); HDL CHOLESTEROL 21 mg/dL; LDL CHOLESTEROL,CALCULATED 47 mg/dL; LDL/HDL RATIO 2.2 (<4.4); POTASSIUM 3.9 mmol/L (3.5-4.5); SODIUM 138 mmol/L (135-145); TOTAL PROTEIN 7.1 g/dL (6.4-8.9); TRIGLYCERIDES 187 mg/dL (48-352); VLDL CHOLESTEROL 37 mg/dL
[2023-07-20 21:46] LABS: ESTIMATED AVERAGE GLUCOSE 140 mg/dL (70-100); HEMOGLOBIN A1c% 6.5 % (4.27-6.07)
== END 2023-07-20 12:09 | disposition home or self-care (01) ==
LOC: LAB.N 12:08
DX: I10 Essential (primary) hypertension (principal); E11.9 Type 2 diabetes mellitus without complications; E05.90 Thyrotoxicosis, unspecified without thyrotoxic crisis or storm; E78.5 Hyperlipidemia, unspecified; F17.200 Nicotine dependence, unspecified, uncomplicated; G47.30 Sleep apnea, unspecified; Z79.4 Long term (current) use of insulin
CPT/HCPCS: 36415; 80053; 80061; 83036; 83721; 84439; 84443; 84481; 85025

== ENCOUNTER 2023-07-24 21:08 | Outpatient (CLI) | payer MEDICARE, MEDICAID | END 2023-07-24 23:59 | disposition critical access hospital (66) | LOC: EMS 21:08 | DX: R45.851 Suicidal ideations (principal) | CPT/HCPCS: A0425; A0429 ==

== ENCOUNTER 2023-07-24 21:33 | Emergency (ER) | payer MEDICARE, MEDICAID ==
[2023-07-24 22:06] LABS: BASOPHILS % (AUTO) 0.4 %; EOSINOPHILS # (AUTO) 0.1 10^3/uL (0.0-0.7); EOSINOPHILS % (AUTO) 1.6 %; HCT - HEMATOCRIT 38.4 % (37.0-47.0); LYMPHOCYTES # (AUTO) 1.9 10^3/uL (1.5-3.5); LYMPHOCYTES % (AUTO) 23.1 %; MEAN CORPUSCULAR HEMOGLOBIN 28.6 pg (27.0-31.0); MEAN CORPUSCULAR HGB CONC 33.9 g/dL (32.0-36.0); MEAN CORPUSCULAR VOLUME 84.6 fL (81.0-99.0); MEAN PLATELET VOLUME 8.8 fL (7.9-10.8); MONOCYTES # (AUTO) 0.3 10^3/uL (0.0-1.0); MONOCYTES % (AUTO) 3.9 %; NEUTROPHILS # (AUTO) 5.7 10^3/uL (1.5-6.6); NEUTROPHILS % (AUTO) 70.6 %; PLT - PLATELET COUNT 250 10^3/uL (130-450); RED BLOOD COUNT 4.54 10^6/uL (4.20-5.40); RED CELL DISTRIBUTION WIDTH 12.4 % (12.0-15.0)
[2023-07-24 22:19] LABS: BILIRUBIN,URINE NEGATIVE (NEGATIVE); GLUCOSE, URINE (UA) NEGATIVE (NEGATIVE); KETONES,URINE (UA) NEGATIVE (NEGATIVE); LEUKOCYTE ESTERASE, URINE NEGATIVE (NEGATIVE); NITRITE,URINE NEGATIVE (NEGATIVE); OCCULT BLOOD,URINE NEGATIVE (NEGATIVE); PROTEIN,URINE NEGATIVE (NEGATIVE); UROBILINOGEN,URINE 0.2 (NORMAL) E.U./dL (NORMAL)
[2023-07-24 22:22] LABS: CLARITY,URINE CLEAR (CLEAR); HCG UR QUAL NEGATIVE
[2023-07-24 22:25] LABS: ALBUMIN 3.5 g/dL (3.2-5.5); ALKALINE PHOSPHATASE 64 IU/L (42-121); ALT ALANINE AMINOTRANSFERASE 17 IU/L (10-60); AST ASPARTATE AMINOTRANSFERASE 15 IU/L (10-42); BILIRUBIN,TOTAL 0.4 mg/dL (0.2-1.0); BUN - BLOOD UREA NITROGEN 11 mg/dL (6-20); CALCIUM 9.4 mg/dL (8.5-10.3); CARBON DIOXIDE - CO2 24 mmol/L (21-32); CHLORIDE 108 mmol/L (101-111); CREATININE 0.4 mg/dL (0.6-1.3); ETOH - ETHANOL < 10.0 mg/dL; GFR - MDRD 174 (>89); GLUCOSE 151 mg/dL (74-104); POTASSIUM 4.2 mmol/L (3.5-4.5); SODIUM 139 mmol/L (135-145)
[2023-07-24 22:27] LABS: ACETAMINOPHEN < 0.1 ug/mL; SALICYLATE < 1.5 mg/dL
[2023-07-24 22:31] LABS: AMPHETAMINE SCREEN,URINE NEGATIVE (NEGATIVE); BARBITURATE SCREEN,UR NEGATIVE (NEGATIVE); BENZODIAZEPINES SCREEN, URINE NEGATIVE (NEGATIVE); BUPRENORPHINE SCREEN, URINE NEGATIVE (NEGATIVE); COCAINE SCREEN URINE NEGATIVE (NEGATIVE); METHADONE SCREEN, URINE NEGATIVE (NEGATIVE); METHAMPHETAMINES SCREEN, URINE NEGATIVE (NEGATIVE); OPIATE SCREEN, URINE NEGATIVE (NEGATIVE); OXYCODONE SCREEN, URINE NEGATIVE (NEGATIVE); THC CANNABINOID SCREEN, URINE NEGATIVE (NEGATIVE); TRICYCLIC ANTIDEPRESSANT,URINE NEGATIVE (NEGATIVE)
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
[2023-07-24 22:36] LABS: THYROID STIMULATING HORMONE < 0.01 uIU/mL (0.34-5.60)
[2023-07-25 00:33] VITALS: BP 150/84; O2SAT 98
== END 2023-07-25 00:28 | disposition home or self-care (01) ==
LOC: EDUNIT# → ED 21:33
DX: Z02.89 Encounter for other administrative examinations (principal); I10 Essential (primary) hypertension; E11.9 Type 2 diabetes mellitus without complications; Z79.4 Long term (current) use of insulin
CPT/HCPCS: 36415; 80053; 80306; 80307; 81003; 81025; 84443; 85025; 87635; 99283; G0480; 80320; 80329; 81001; 87086

== ENCOUNTER 2023-09-29 11:48 | Outpatient (CLI) | payer MEDICARE, MEDICAID ==
[2023-09-29 18:04] LABS: ALBUMIN 3.4 g/dL (3.2-5.5); ALKALINE PHOSPHATASE 90 IU/L (42-121); ALT ALANINE AMINOTRANSFERASE 16 IU/L (10-60); AST ASPARTATE AMINOTRANSFERASE 14 IU/L (10-42); BILIRUBIN,TOTAL 0.4 mg/dL (0.2-1.0); BUN - BLOOD UREA NITROGEN 11 mg/dL (6-20); CALCIUM 9.7 mg/dL (8.5-10.3); CARBON DIOXIDE - CO2 26 mmol/L (21-32); CHLORIDE 108 mmol/L (101-111); CREATININE 0.3 mg/dL (0.6-1.3); GFR - MDRD 243 (>89); GLUCOSE 215 mg/dL (74-104); POTASSIUM 4.2 mmol/L (3.5-4.5); SODIUM 138 mmol/L (135-145); TOTAL PROTEIN 6.8 g/dL (6.4-8.9)
[2023-09-29 18:14] LABS: BASOPHILS % (AUTO) 0.3 %; EOSINOPHILS # (AUTO) 0.1 10^3/uL (0.0-0.7); EOSINOPHILS % (AUTO) 1.8 %; HCT - HEMATOCRIT 40.1 % (37.0-47.0); HGB - HEMOGLOBIN 13.5 g/dL (12.0-16.0); LYMPHOCYTES # (AUTO) 2.2 10^3/uL (1.5-3.5); LYMPHOCYTES % (AUTO) 28.5 %; MEAN CORPUSCULAR HEMOGLOBIN 27.9 pg (27.0-31.0); MEAN CORPUSCULAR HGB CONC 33.7 g/dL (32.0-36.0); MEAN CORPUSCULAR VOLUME 82.9 fL (81.0-99.0); MEAN PLATELET VOLUME 9.4 fL (7.9-10.8); MONOCYTES # (AUTO) 0.4 10^3/uL (0.0-1.0); MONOCYTES % (AUTO) 5.2 %; NEUTROPHILS % (AUTO) 64.1 %; PLT - PLATELET COUNT 261 10^3/uL (130-450); RED BLOOD COUNT 4.84 10^6/uL (4.20-5.40); WHITE BLOOD COUNT 7.7 x10^3/uL (4.8-10.8)
[2023-09-29 18:20] LABS: THYROID STIMULATING HORMONE < 0.01 uIU/mL (0.34-5.60)
[2023-09-29 20:56] LABS: ESTIMATED AVERAGE GLUCOSE 151 mg/dL (70-100); HEMOGLOBIN A1c% 6.9 % (4.27-6.07)
== END 2023-09-29 11:49 | disposition home or self-care (01) ==
LOC: LAB.N 11:48
PROVIDERS: ATTEND Registered Nurse
DX: E05.90 Thyrotoxicosis, unspecified without thyrotoxic crisis or storm (principal); E11.65 Type 2 diabetes mellitus with hyperglycemia
CPT/HCPCS: 36415; 80053; 83036; 84436; 84439; 84443; 84481; 85025; 86800

== ENCOUNTER 2023-10-24 13:47 | Outpatient (CLI) | payer MEDICARE, MEDICAID ==
--- NOTE | 2023-10-24 22:17 | Ultrasound Report ---
PROCEDURE: Soft Tissue Head or Neck INDICATIONS: THYROID DISORDER TECHNIQUE: Real-time scanning was performed of the thyroid gland, with image documentation. COMPARISON: None FINDINGS: Right: Thyroid lobe measures 4.5 x 1.9 x 1.5 cm cm, and is heterogeneous in echotexture. Left: Thyroid lobe measures 4.4 x 1.7 x 1.5 cm cm, and is heterogeneous in echotexture. Isthmus: 0.5 cm thick. Multiple subcentimeter nodules, with the largest within measuring 7 mm. Composition: Solid (2 points). Echogenicity: Hypoechoic (2 points). Shape: wider than tall (0 points). Margins: Smooth (0 points). Echogenic foci: None (0 points). Total points: 4 ACR TI-RADS category: TI-RADS 4: Moderately suspicious. IMPRESSION: 1.Multiple subcentimeter TI RADS 4 nodules. No follow-up imaging is recommended given size. 2.Heterogeneous echotexture of the thyroid. ACR TI-RADS definitions and recommendations: TI-RADS 1 (benign): 0 points. FNA not needed. TI-RADS 2 (not suspicious): 2 points. FNA not needed. TI-RADS 3 (mildly suspicious): 3 points. "FNA if 2.5 cm or larger, follow up if 1.5 cm or larger (at 1, 3, and 5 years). TI-RADS 4 (moderately suspicious): 4-6 points. "FNA if 1.5 cm or larger, follow up if 1 cm or larger (at 1, 2, 3, and 5 years). TI-RADS 5 (highly suspicious): 7 points or more. "FNA if 1 cm or larger, follow up if 0.5 cm or larger (every year for 5 years). Reviewed by: Ilsa Durant MD on 10/24/2023 10:16 PM PDT Approved by: Ilsa Durant MD on 10/24/2023 10:16 PM PDT Station ID: [id number]
== END 2023-10-24 13:48 | disposition home or self-care (01) ==
LOC: DI 13:47
PROVIDERS: ATTEND Nurse Practitioner Family
DX: E04.2 Nontoxic multinodular goiter (principal)

== ENCOUNTER 2023-12-28 08:00 | Outpatient (CLI) | payer MEDICARE, MEDICAID | END 2023-12-28 23:59 | disposition home or self-care (01) | LOC: LAB.N 08:00 | PROVIDERS: ATTEND Physician Assistant Medical | DX: R30.0 Dysuria (principal) | CPT/HCPCS: 87086 ==

== ENCOUNTER 2024-01-24 13:53 | Outpatient (CLI) | payer MEDICARE, MEDICAID ==
[2024-01-24 18:23] LABS: BUN - BLOOD UREA NITROGEN 13 mg/dL (6-20); CALCIUM 9.6 mg/dL (8.5-10.3); CARBON DIOXIDE - CO2 24 mmol/L (21-32); CHLORIDE 107 mmol/L (101-111); CREATININE 0.5 mg/dL (0.6-1.3); GFR - MDRD 134 (>89); GLUCOSE 237 mg/dL (74-104); POTASSIUM 4.3 mmol/L (3.5-4.5); SODIUM 135 mmol/L (135-145)
[2024-01-24 18:59] LABS: THYROID STIMULATING HORMONE < 0.01 uIU/mL (0.34-5.60)
[2024-01-24 22:08] LABS: ESTIMATED AVERAGE GLUCOSE 171 mg/dL (70-100); HEMOGLOBIN A1c% 7.6 % (4.27-6.07)
== END 2024-01-24 13:54 | disposition home or self-care (01) ==
LOC: LAB.N 13:53
PROVIDERS: ATTEND Nurse Practitioner Family
DX: E11.65 Type 2 diabetes mellitus with hyperglycemia (principal); E07.9 Disorder of thyroid, unspecified; E05.80 Other thyrotoxicosis without thyrotoxic crisis or storm
CPT/HCPCS: 36415; 80048; 82043; 82570; 83036; 84439; 84443; 84481; 86800

== ENCOUNTER 2024-01-31 23:29 | Emergency (ER) | payer MEDICARE, MEDICAID ==
[2024-01-31 23:46] VITALS: BP 138/83
--- NOTE | 2024-02-01 00:03 | ED Physician Documentation ---
PD BUNN HEENT - Stated complaint Stated Complaint: LT EAR PX - Chief complaint Chief Complaint: Heent - History obtained from History obtained from: Patient - Additional information Additional information: The patient comes to the emergency department chief complaint of Q-tip and stuck in the left ear for about the last 30 minutes. Patient states that she was cleaning her ears when the tip of the Q-tip came off. She states she tried to get it out but it seemed to just push it further in. Her hearing is a little muffled but she denies ear pain. No other complaints at this time. 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 - Present Medications Home Medications: Ambulatory Orders Medication Instructions Recorded Confirmed Insulin Glargine,Hum.rec.anlog 10 unit SQ QPM 04/23/14 07/24/23 [Lantus] Duloxetine HCl [Cymbalta] 60 mg PO DAILY 07/24/23 07/24/23 Gabapentin [Neurontin] 300 mg PO HS 07/24/23 07/24/23 Insulin Regular Human [Humulin R] 0 unit SUBQ PRN PRN 07/24/23 07/24/23 OXcarbazepine [Trileptal] 300 mg PO BID 07/24/23 07/24/23 Sucralfate [Carafate] 1 tablet PO BID 07/24/23 07/24/23 - Allergies Allergies/Adverse Reactions: Allergies Allergy/AdvReac Type Severity Reaction Status Date / Time glipizide AdvReac Intermediate Diarrhea Verified 01/31/24 23:42 metformin AdvReac Intermediate Diarrhea Verified 01/31/24 23:42 acetaminophen [From Percocet] AdvReac Itching Verified 01/31/24 23:42 oxycodone HCl * AdvReac Itching Verified 01/31/24 23:42 [From Percocet] - Social History Does the pt smoke?: Yes Smoking Status: Current every day smoker Does the pt drink ETOH?: Yes Does the pt have substance abuse?: No - Immunizations Immunizations are current?: Yes Immunizations: TDAP >10years/unknown - POLST Patient has POLST: No PD ED PE NORMAL - Vitals Vital signs reviewed: Yes - General General: Alert and oriented X 3, No acute distress, Well developed/nourished - HEENT HEENT: Atraumatic, EOMI, Moist mucous membranes, Other ([place] end of Q-tip visualized deep in left external auditory canal. Tiny abrasion more externally that is not bleeding. No other drainage.) - Cardiac Cardiac: RRR, No murmur - Respiratory Respiratory: Clear bilaterally - Abdomen Abdomen: Normal bowel sounds, Soft, Non tender, Non distended - Derm Derm: Warm and dry - Extremities Extremities: No deformity - Neuro Neuro: Alert and oriented X 3 - Psych Psych: Normal mood, Normal affect Results - Vitals Vitals: Vital Signs - 24 hr 01/31/24 23:38 Temperature 36.4 C L Heart Rate 83 Respiratory 19 Rate Blood Pressure 138/83 H O2 Saturation 100 Oxygen O2 Source Room air PD Medical Decision Making - ED course Complexity details: considered differential, d/w patient ED course: The Q-tip end was easily removed from the patient's ear using tiny forceps. Reexamination the ear revealed a normal tympanic membrane and no trauma to the external auditory canal. Patient was stable for discharge home. Departure - Departure Disposition: 01 Home, Self Care Clinical Impression: Foreign body in ear Qualifiers: Encounter type: initial encounter Laterality: left Qualified Code(s): T16.2XXA - Foreign body in left ear, initial encounter Condition: Stable Instructions: ED Foreign Body Ear Canal
[2024-02-01 00:43] VITALS: O2SAT 99
== END 2024-02-01 00:26 | disposition home or self-care (01) ==
LOC: ED 23:29
DX: T16.2XXA Foreign body in left ear, initial encounter (principal); W44.8XXA Other foreign body entering into or through a natural orifice, initial encounter; I10 Essential (primary) hypertension; E78.00 Pure hypercholesterolemia, unspecified; E11.9 Type 2 diabetes mellitus without complications; Z79.4 Long term (current) use of insulin; Z79.899 Other long term (current) drug therapy; F17.200 Nicotine dependence, unspecified, uncomplicated
CPT/HCPCS: 99281; 99283

== ENCOUNTER 2024-03-08 13:44 | Outpatient (CLI) | payer MEDICARE, MEDICAID ==
--- NOTE | 2024-03-08 14:24 | Sleep Patient Instructions ---
Sleep Center Visit Summary - Patient Visit Information Reason for Visit: Initial consultation - Patient Instructions Instructions Attached: Sleep Study Home Monitor Additional Instructions: You will be completing a sleep study, either an in-lab polysomnography (PSG) or home sleep study (HST). You will follow-up in the sleep care office after the sleep study is completed to hear the results and talk about therapy, if needed. You will be called by our office staff to schedule this appointment, but you may contact us with any questions. - Clinic Information Contact: [facility] [address] [place] [address] [email or web address] T: [phone]
--- NOTE | 2024-03-08 14:30 | SLEEP CARE CONSULTATION ---
Information from patient questionnaire entered by Roselyn Francis. I have reviewed and concur with the information entered by Roselyn Francis. This document represents the service I personally performed and the decisions made by me, Amanda Singh ARNP. History of Present Illness Service Date and Time: 03/08/2024 1344 Reason for Visit: New patient, Previously diagnosed sleep apnea, Re-establish care Chief Complaint: reports: Insomnia, Snoring, Excessive daytime sleepiness, Fatigue, Frequent awakenings at night Usual bedtime: 2200 Time it takes to fall asleep: 2-3 Snores at night: Yes Observed to quit breathing while asleep: Yes Sleeps alone due to snoring: No Number of times waking at night: 3 Reasons for waking at night: reports: Snoring, Other (UNKNOWN). denies: Choking, Gasping for air Toss, Turn, or Twitch while sleeping: Yes Recalls having dreams: No Usually gets out of bed at: [id number] Feels refreshed in the morning: No Morning headache: No Sleepy or fatigued during the day: Yes Ever fallen asleep while driving: No Takes day naps: Yes (almost every day for about 1-2 hours) Dreams during day naps: No Prior sleep studies: Yes Additional HPI information: SUKHDEEP CURRY was previously diagnosed to have very severe, AHI 61.4, obstructive sleep apnea-hypopnea syndrome in sleep study dated 08/21/2016 and comes in today to re-establish [facility]. She has not been using her CPAP for last 5 years because it was broken and she did not follow up for repair/replacement. She comes back today because she is always very tired. Her current complaints are excessive daytime sleepiness, fatigue, frequent night awakenings, insomnia and snoring. She comes back today because she is tired all the time. She is still snoring but no one is mentioning her stopping breathing. Her daughter says she "jerks" in her sleep. She says she can get up with others in the household and then go out and sit on the couch on her porch and go back to sleep. - Parasomnia Symptoms Ever been unable to move upon waking from sleep: No Walks in sleep: No Talks in sleep: Yes Ever acted out dreams in sleep: No Ever felt weak in the knees when startled or emotional: No Bothered by creepy, crawly, restless sensations in legs: No Problems with memory or concentration: Yes (memory mostly) Subjective Initial [place] Sleepiness Scale score: 20 (03/08/24) Past Medical History Past Medical History: reports: Hypertension, Diabetes, Depression, Other (BIPOLAR, NEUROPATHY) Social History The patient's occupation is a [employer]. Patient is Single and lives in [place]. Have you smoked in the past 12 months: Yes (vaping) Years of smokin Quit date: 03/2023 Alcohol use: No Caffeine use: Yes Caffeine amount and frequency: 1 CAN IN AFTERNOON Family History Family history of sleep disordered breathing: Yes (sister and brother have sleep apnea) Family Hx Sleep Apnea: Sibling: Snoring, Sleep apnea - Treated Allergies and Home Medications Known drug allergies: Yes ( LISTED) Drug allergies reviewed: Yes Home medication list reviewed: Yes (as listed) Allergy and home medication list: Allergies glipizide Adverse Reaction (Intermediate, Verified 03/08/24 13:50) Diarrhea metformin Adverse Reaction (Intermediate, Verified 03/08/24 13:50) Diarrhea acetaminophen [From Percocet] Adverse Reaction (Verified 03/08/24 13:50) Itching oxycodone HCl * [From Percocet] Adverse Reaction (Verified 03/08/24 13:50) Itching Home Medications Medication Instructions Recorded Confirmed Last Taken Type Insulin Glargine,Hum.rec.anlog 10 unit SQ QPM 04/23/14 03/08/24 07/23/23 History [Lantus] Duloxetine HCl [Cymbalta] 60 mg PO DAILY 07/24/23 03/08/24 07/23/23 History OXcarbazepine [Trileptal] 300 mg PO BID 07/24/23 03/08/24 07/24/23 History Sucralfate [Carafate] 1 tablet PO BID 07/24/23 03/08/24 07/23/23 History Gabapentin [Neurontin] See Rx Instructions .ROUTE .COMPLEX 03/08/24 03/08/24 Unknown History Ibuprofen See Rx Instructions .ROUTE .COMPLEX 03/08/24 03/08/24 Unknown History Losartan [Cozaar] See Rx Instructions .ROUTE .COMPLEX 03/08/24 03/08/24 Unknown History Spironolactone [Aldactone] See Rx Instructions .ROUTE .COMPLEX 03/08/24 03/08/24 Unknown History Review of Systems Cardiovascular: reports: high blood pressure Gastrointestinal: denies: heartburn Neurological: denies: headaches Psychiatric: reports: mood disorder. denies: anxiety, depression Ear/Nose/Throat: denies: tonsillectomy Endocrine: reports: thyroid disease Physical Exam Vital signs obtained and entered by: ROSELYN Waddell MA Blood Pressure: 157/86 (RIGHT ARM) Cuff size: long Heart Rate: 103 O2 Saturation: 97 Height: 4 ft 11 in Weight: 231 lb 3.2 oz Body Mass Index: 46.7 BMI Classification: Morbidly Obese Neck circumference: 20 Nostrils: patent to airflow Mouth and throat: narrow oropharynx Soft palate: long Hard palate: normal Uvula: normal Uvula visualization: 25% Mallampati Class III Tongue: enlarged in size with teeth meyers on lateral edges Tonsils: 2+ Neck: normal w/o lymphadenopathy or thyromegaly Heart: regular rate and rhythm Lungs: clear bilaterally Impression and Plan 1. Suspected Obstructive Sleep Apnea-Hypopnea Syndrome, as previously diagnosed and as suggested by a history of loud and irregular snoring, frequent awakening during the night, unrefreshed sleep, cognitive impairment, and excessive daytime sleepiness. Narrow oropharynx and obesity are common predisposing factors for obstructive sleep apnea-hypopnea syndrome. I recommend proceeding to polysomnography to confirm the diagnosis and to assess severity. If the patient has significant sleep disordered breathing, a manual CPAP titration study will also be performed to find the optimal treatment pressure. I informed the patient of what the sleep studies involve and after some discussion, obtained agreement to proceed. The pathophysiology of obstructive sleep apnea-hypopnea syndrome was discussed with the patient and health risks of cardiovascular and cerebrovascular disease if not treated. Risks of drowsy driving discussed in detail and patient advised to avoid long distance driving and to bone char puller at the first sign of drowsiness. Patient agreed to plan. * Schedule polysomnography * Avoid long distance driving or driving when feeling sleepy. * Avoid alcohol, sedative and muscle relaxant around bedtime. * Attempt to lose weight. * Review instructions provided by trained office staff on how to prepare for the sleep study. * Return for follow-up after sleep study completed. Counseling Topics: Weight loss health impact Plan: sleep study and followup Visit Type: In Office Time Spent with Patient (minutes): 30 Provider Statement: I spent 100% of the Face to Face Visit with the patient with greater than 50% spent counseling the patient and coordination of care.
[2024-03-08 14:40] VITALS: BP 157/86; O2SAT 97
== END 2024-03-08 13:45 | disposition home or self-care (01) ==
LOC: SC 13:44
PROVIDERS: ATTEND Nurse Practitioner Family
DX: G47.33 Obstructive sleep apnea (adult) (pediatric) (principal); E66.01 Morbid (severe) obesity due to excess calories; Z68.42 Body mass index [BMI] 45.0-49.9, adult; F17.290 Nicotine dependence, other tobacco product, uncomplicated
CPT/HCPCS: 99203; G0463; 99212